=== PATIENT | female | born 1955 | race Caucasian/White ===

== ENCOUNTER 2017-05-11 14:42 | Emergency (ER) | payer BC ==
[2017-05-11] MEDS ORDERED: Lidocaine 1% PF 5 ML VIAL ONE (17:17)
--- NOTE | 2017-05-11 17:18 | RAD ---
LEFT HAND THREE VIEWS: 05/11/17 HISTORY: Injury, left hand pain, laceration. FINDINGS/IMPRESSION: No acute fracture or dislocation is seen. Degenerative changes are present. No radiopaque foreign bod y is identified. POS: [facility]
[2017-05-11] MEDS ORDERED: Adacel (T-DAP) 0.5 ML VIAL ONE (17:41)
== END 2017-05-11 18:00 | disposition home or self-care (01) ==
LOC: ERS 14:42
DX: S61.412A Laceration without foreign body of left hand, initial encounter (principal); Z79.899 Other long term (current) drug therapy; W26.0XXA Contact with knife, initial encounter
CPT/HCPCS: 12001; 90471; 90715; J2001